=== PATIENT | female | born 1960 | race Caucasian/White ===

== ENCOUNTER 2017-12-10 17:32 | Emergency (ER) | payer OTHER ==
[~2017-12-10] VITALS: Ht 165.1 cm; Wt 70.3 kg
[~2017-12-10 17:32] MED LIST: ACETAMINOPHEN-1 EAC1 PO; AMITRIPTYLINE H10 M1 PO; ASPIRIN325 PO; CLEOCIN HCL150 MG PO; DUONEB 2.5-0.5 M3 ML INH; E.E.S. 400400 MG PO; FLEXERIL PO; HYDROCODON-ACE1 EAC4 PO; HYDROCODONE-AP1 EAC6 PO; IBUPROFEN 400400 M2 PO; KEFLEX500 MG PO; LEVAQUIN 500 M500 M2 PO; LIDOCAINE VISC100 M1 SWISH&SPIT; MEDROLDOSEPACK PO; MELOXICAM7.5 MG PO; MOBIC7.5 MG PO; NAPROSYN500 MG PO; NEBULIZER MISCELL; NEURONTIN 300300 M1 PO; NICOTINE TRANSD21 M1 TRANSDERM; NOHOMEMEDICATIONS; NORCO 10-325 T1 EACH PO; NORCO 5-325 TA1 EACH PO; OXYCONTIN10 M1 PO; OXYCONTIN20 M1 PO; PERCOCET 5-3251 EACH PO; PREDNISONE 10 M10 MG PO; PREDNISONE 20 M20 M1 PO; PREDNISONE 20 M20 MG PO; PROAIR HFA8.5 GM INH; PROVENTIL HFA6.7 G1 INH; RITALIN LA10 MG; ROBAXIN 750 MG750 M1 PO; SIMVASTATIN80 MG PO; TESSALON PERLE100 MG PO; TRAMADOL 50 MG50 MG PO; VALIUM5 MG PO; VYTORIN; levofloxacin PO
[2017-12-10 18:00] LABS: URINE BILIRUBIN NEGATIVE (Negative); URINE BLOOD TRACE (Negative); URINE CLARITY CLEAR; URINE COLOR YELLOW; URINE GLUCOSE-RANDOM NEGATIVE (Negative); URINE KETONES NEGATIVE (Negative); URINE LEUKOCYTES-REFLEX NEGATIVE (Negative); URINE NITRITE-REFLEX NEGATIVE (Negative); URINE PROTEIN NEGATIVE (Negative); URINE SPECIFIC GRAVITY <= 1.005 (1.005-1.030); URINE UROBILINOGEN 0.2 E.U./dl (0.2-1.0)
[2017-12-10 18:10] LABS: AMP/METHAMP Negative (Negative); BARBITURATES Negative (Negative); BENZODIAZEPINES Negative (Negative); COCAINE Negative (Negative); METHADONE Negative (Negative); OPIATES Negative (Negative); PCP Negative (Negative); THC Negative (Negative)
[2017-12-10 18:14] LABS: ABSOLUTE BASOPHILS 0.1 thou/uL (0.0-0.2); ABSOLUTE EOSINOPHILS 0.1 thou/uL (0.0-0.7); ABSOLUTE LYMPHOCYTES 2.8 thou/uL (0.8-5.3); ABSOLUTE MONOCYTES 0.9 thou/uL (0.0-1.2); ABSOLUTE NEUTROPHILS 7.9 thou/uL (1.6-8.1); BASOPHILS 0.9 %; EOSINOPHILS 1.1 %; HEMATOCRIT 43.3 % (37.0-47.0); HEMOGLOBIN 14.5 gm/dL (12.0-15.0); LYMPHOCYTES 23.8 %; MCH 31.7 pg (26.0-34.0); MCHC 33.5 g/dL (28.0-37.0); MCV 94.5 fL (80.0-100.0); MONOCYTES 7.4 %; MPV 7.5 fl. (7.2-11.1); NUCLEATED RBCS 0 /100WBC; PLATELET COUNT* 410 thou/uL (150-400); POLYS 66.8 %; RBC 4.58 mil/uL (4.20-5.00); RDW-CV 13.9 % (10.5-14.5); WBC 11.9 thou/uL (4.0-11.0)
[2017-12-10 18:57] LABS: CALCIUM 9.4 mg/dL (8.5-10.1); CREATININE 0.7 mg/dL (0.6-1.3); POTASSIUM 3.5 mmol/L (3.5-5.1)
[2017-12-10 19:02] LABS: ALBUMIN 3.2 g/dL (3.4-5.0); TOTAL BILIRUBIN 0.4 mg/dL (<0.1-1.0); TOTAL PROTEIN 7.2 g/dL (6.4-8.2)
[2017-12-10] MEDS ORDERED: PREDNISONE 20 M20 MG PO (19:57)
[2017-12-10 20:34] VITALS: BP 128/66
--- NOTE | 2017-12-11 11:13 | EKG ---
[place] [address] ELECTROCARDIOGRAM REPORT Name: CAMMY CHURCH [id number] Admission: 12/10/17 Attend Phys: Discharge: 12/10/17 Date of : 58 Report #: [id number] THIS REPORT FOR: //name// [facility] ED Test Date: 2017-12-10 Test Time: 17:59:00 Pat Name: CAMMY CHURCH Department: Room: Gender: F Humane Agent: : 1960 Requested By: Ashley Chávez Order Number: [id number] : Shekhar La Measurements Intervals [place] Rate: 96 P: 70 [place]: 129 QRS: 39 QRSD: 102 T: 40 QT: 365 QTc: 462 Interpretive Statements Sinus rhythm Compared to ECG 12/12/2015 20:54:15 Sinus tachycardia no longer present Electronically Signed On 12-11-2017 11:13:12 CDT by Shekhar La [email or web address] <ELECTRONICALLY SIGNED> By: Shekhar La MD, [facility] 12/11/17 1113 1759 1759 Shekhar La MD, FACC /EPI
== END 2017-12-10 20:36 | disposition home or self-care (01) ==
LOC: M.ERS 17:32
PROVIDERS: Nurse Practitioner Family
DX: R19.7 Diarrhea, unspecified (principal); M53.3 Sacrococcygeal disorders, not elsewhere classified; G89.29 Other chronic pain; E78.00 Pure hypercholesterolemia, unspecified; F90.9 Attention-deficit hyperactivity disorder, unspecified type; M79.7 Fibromyalgia; F32.9 Major depressive disorder, single episode, unspecified; F41.9 Anxiety disorder, unspecified; Z88.0 Allergy status to penicillin; Z90.49 Acquired absence of other specified parts of digestive tract; Z88.8 Allergy status to other drugs, medicaments and biological substances; Z88.6 Allergy status to analgesic agent

== ENCOUNTER 2018-06-23 09:47 | Emergency (ER) | payer OTHER ==
[~2018-06-23] VITALS: Ht 165.1 cm; Wt 72.6 kg
[2018-06-23] MEDS ORDERED: NEURONTIN 300300 M1 PO (09:56)
[2018-06-23] MEDS ORDERED: BLOOD PRESSURE MED (09:56)
[2018-06-23 10:15] LABS: ABSOLUTE BASOPHILS 0.1 thou/uL (0.0-0.2); ABSOLUTE EOSINOPHILS 0.1 thou/uL (0.0-0.7); ABSOLUTE LYMPHOCYTES 1.5 thou/uL (0.8-5.3); ABSOLUTE MONOCYTES 0.8 thou/uL (0.0-1.2); ABSOLUTE NEUTROPHILS 8.8 thou/uL (1.6-8.1); BASOPHILS 0.9 %; EOSINOPHILS 0.9 %; HEMATOCRIT 42.5 % (37.0-47.0); HEMOGLOBIN 14.2 gm/dL (12.0-15.0); LYMPHOCYTES 12.9 %; MCH 30.5 pg (26.0-34.0); MCHC 33.5 g/dL (28.0-37.0); MCV 91.1 fL (80.0-100.0); MONOCYTES 7.4 %; MPV 7.3 fl. (7.2-11.1); NUCLEATED RBCS 0 /100WBC; PLATELET COUNT* 451 thou/uL (150-400); POLYS 77.9 %; RBC 4.67 mil/uL (4.20-5.00); RDW-CV 17.3 % (10.5-14.5); WBC 11.3 thou/uL (4.0-11.0)
[2018-06-23 10:24] LABS: ANION GAP 7 mmol/L (7-16); BUN 8 mg/dL (7-18); CALCIUM 9.4 mg/dL (8.5-10.1); CHLORIDE 104 mmol/L (98-107); CO2 27 mmol/L (21-32); CREATININE 0.6 mg/dL (0.6-1.3); GLUCOSE 134 mg/dL (70-99); POTASSIUM 4.3 mmol/L (3.5-5.1); SODIUM 138 mmol/L (136-145)
[2018-06-23 10:31] LABS: ALBUMIN 3.4 g/dL (3.4-5.0); ALKALINE PHOSPHATASE 167 U/L (46-116); SGOT 23 U/L (15-37); SGPT 21 U/L (30-65); TOTAL BILIRUBIN 0.6 mg/dL (<0.1-1.0); TROPONIN-I LEVEL <0.06 ng/mL (<0.06)
[2018-06-23 10:34] LABS: APTT 28.8 Seconds (25.0-31.3); INR 0.9; PROTIME 9.6 Seconds (9.20-11.50)
[2018-06-23 12:04] LABS: URINE BILIRUBIN NEGATIVE (Negative); URINE BLOOD TRACE (Negative); URINE CLARITY CLEAR; URINE COLOR YELLOW; URINE GLUCOSE-RANDOM NEGATIVE (Negative); URINE KETONES NEGATIVE (Negative); URINE LEUKOCYTES-REFLEX NEGATIVE (Negative); URINE NITRITE-REFLEX NEGATIVE (Negative); URINE PROTEIN NEGATIVE (Negative); URINE SPECIFIC GRAVITY <= 1.005 (1.005-1.030); URINE UROBILINOGEN 0.2 E.U./dl (0.2-1.0)
[2018-06-23] MEDS ORDERED: MEDROLDOSEPACK PO (12:48)
[2018-06-23] MEDS ORDERED: TORADOL 10 MG T10 MG PO (12:48)
[2018-06-23 13:24] VITALS: BP 149/80
--- NOTE | 2018-06-25 11:01 | EKG ---
[place] [address] ELECTROCARDIOGRAM REPORT Name: CAMMY CHURCH [id number] Admission: 06/23/18 Attend Phys: Discharge: 06/23/18 Date of : 58 Report #: [id number] THIS REPORT FOR: //name// [facility] ED Test Date: 2018-06-23 Test Time: 09:54:20 Pat Name: CAMMY CHURCH Department: Room: Gender: F Construction Director: [place] : 1960 Requested By: Roxanna Ruano Order Number: [id number] Kayla MD: Shekhar La Measurements Intervals [place] Rate: 107 P: 78 SD: 128 QRS: 28 QRSD: 94 T: 43 QT: 319 QTc: 426 Interpretive Statements Sinus tachycardia Borderline low voltage, extremity leads Abnormal R-wave progression, early transition Compared to ECG 12/10/2017 17:59:00 Sinus rate has increased Electronically Signed On 06-25-2018 11:01:39 MANAGER EXCHANGE by Shekhar La [email or web address] <ELECTRONICALLY SIGNED> By: Shekhar La MD, [facility] 06/25/18 1101 [id number] Shekhar La MD, FACC /EPI
== END 2018-06-23 13:26 | disposition home or self-care (01) ==
LOC: M.ERS 09:47
PROVIDERS: Personal Emergency Response Attendant
DX: M94.0 Chondrocostal junction syndrome [Tietze] (principal); E78.00 Pure hypercholesterolemia, unspecified; F90.9 Attention-deficit hyperactivity disorder, unspecified type; M79.7 Fibromyalgia; F32.9 Major depressive disorder, single episode, unspecified; F41.9 Anxiety disorder, unspecified; I25.2 Old myocardial infarction; F17.210 Nicotine dependence, cigarettes, uncomplicated; Z88.0 Allergy status to penicillin; Z88.8 Allergy status to other drugs, medicaments and biological substances

== ENCOUNTER 2018-06-29 17:23 | Emergency (ER) | payer OTHER ==
[~2018-06-29] VITALS: Ht 154.9 cm; Wt 73.0 kg
[~2018-06-29 17:23] MED LIST changes: +BLOOD PRESSURE MED; +TORADOL 10 MG T10 MG PO
[2018-06-29] MEDS ORDERED: FLEXERIL PO (17:40)
[2018-06-29] MEDS ORDERED: NORCO 5-325 TA1 EACH PO (17:40)
[2018-06-29 17:42] VITALS: BP 139/100
== END 2018-06-29 17:43 | disposition home or self-care (01) ==
LOC: M.ERS 17:23
DX: R07.81 Pleurodynia (principal); E78.00 Pure hypercholesterolemia, unspecified; F32.9 Major depressive disorder, single episode, unspecified; F41.9 Anxiety disorder, unspecified; I25.2 Old myocardial infarction; M79.7 Fibromyalgia; Z90.49 Acquired absence of other specified parts of digestive tract; Z98.890 Other specified postprocedural states; F17.210 Nicotine dependence, cigarettes, uncomplicated; Z88.0 Allergy status to penicillin; Z88.8 Allergy status to other drugs, medicaments and biological substances

== ENCOUNTER 2019-01-07 08:38 | Emergency (ER) | payer OTHER ==
[~2019-01-07] VITALS: Ht 154.9 cm; Wt 52.2 kg
[2019-01-07 09:16] LABS: ABSOLUTE BASOPHILS 0.1 thou/uL (0.0-0.2); ABSOLUTE EOSINOPHILS 0.2 thou/uL (0.0-0.7); ABSOLUTE LYMPHOCYTES 1.2 thou/uL (0.8-5.3); ABSOLUTE NEUTROPHILS 11.4 thou/uL (1.6-8.1); BASOPHILS 0.5 %; EOSINOPHILS 1.3 %; HEMATOCRIT 33.5 % (37.0-47.0); HEMOGLOBIN 11.2 gm/dL (12.0-15.0); LYMPHOCYTES 8.5 %; MCH 31.3 pg (26.0-34.0); MCHC 33.4 g/dL (28.0-37.0); MCV 93.8 fL (80.0-100.0); MONOCYTES 7.4 %; MPV 7.7 fl. (7.2-11.1); NUCLEATED RBCS 0 /100WBC; PLATELET COUNT* 393 thou/uL (150-400); POLYS 82.3 %; RBC 3.57 mil/uL (4.20-5.00); RDW-CV 14.5 % (10.5-14.5); WBC 13.9 thou/uL (4.0-11.0)
[2019-01-07 09:19] LABS: BE -0.5 mmol/L (-2 to +3); PCO2 41.9 mmHg (35.0-45.0); PO2 60.5 mmHg (75.0-100.0); pH 7.385 (7.340-7.450)
[2019-01-07 09:22] LABS: ANION GAP 7 mmol/L (7-16); BUN 6 mg/dL (7-18); CALCIUM 8.9 mg/dL (8.5-10.1); CHLORIDE 104 mmol/L (98-107); CO2 26 mmol/L (21-32); CREATININE 0.6 mg/dL (0.6-1.3); GLUCOSE 138 mg/dL (70-99); POTASSIUM 3.3 mmol/L (3.5-5.1); SODIUM 137 mmol/L (136-145)
[2019-01-07 09:27] LABS: APTT 31.2 Seconds (25.0-31.3); PROTIME 9.9 Seconds (9.20-11.50)
[2019-01-07 09:34] LABS: ALBUMIN 2.5 g/dL (3.4-5.0); ALKALINE PHOSPHATASE 130 U/L (46-116); CK-MB MASS 1.1 ng/mL (<0.5-3.6); LIPASE 32 U/L (73-393); MAGNESIUM 1.6 mg/dL (1.8-2.4); NT-PRO BRAIN NAT PEPTIDE 319 pg/mL (<300); SGOT 16 U/L (15-37); SGPT 17 U/L (30-65); TOTAL BILIRUBIN 0.4 mg/dL (<0.1-1.0); TOTAL PROTEIN 6.8 g/dL (6.4-8.2); TROPONIN-I LEVEL <0.06 ng/mL (<0.06)
[2019-01-07] MEDS ORDERED: VENTOLIN HFA 1818 GM INH (09:48)
[2019-01-07] MEDS ORDERED: LEVAQUIN 500 M500 MG PO (09:48)
[2019-01-07] MEDS ORDERED: PREDNISONE 20 M20 M1 PO (09:48)
[2019-01-07 10:30] VITALS: BP 126/68
--- NOTE | 2019-01-08 16:10 | EKG ---
[place] [address] ELECTROCARDIOGRAM REPORT Name: CAMMY CHURCH [facility] [id number] Admission: 01/07/19 Attend Phys: Discharge: 01/07/19 Date of : 58 Report #: [id number] THIS REPORT FOR: //name// [facility] ED Test Date: 2019-01-07 Test Time: 08:42:31 Pat Name: CAMMY CHURCH Department: Room: Gender: F Echocardiograph Technician: : 1960 Requested By: Branden Aguilar Order Number: [id number] MD: Shekhar La Measurements Intervals [place] Rate: 91 P: 71 CT: 122 QRS: 28 QRSD: 100 T: 60 QT: 357 QTc: 440 Interpretive Statements Sinus rhythm Compared to ECG 06/23/2018 09:54:20 Sinus tachycardia no longer present Electronically Signed On 01-08-2019 16:09:56 CDT by Shekhar La [email or web address] <ELECTRONICALLY SIGNED> By: Shekhar La MD, [facility] 01/08/19 1609 0842 0842 Shekhar La MD, FACC /EPI
== END 2019-01-07 10:30 | disposition home or self-care (01) ==
LOC: M.ERS 08:38
PROVIDERS: Family Medicine
DX: J44.1 Chronic obstructive pulmonary disease with (acute) exacerbation (principal); J18.9 Pneumonia, unspecified organism; F32.9 Major depressive disorder, single episode, unspecified; F41.9 Anxiety disorder, unspecified; M79.7 Fibromyalgia; E78.00 Pure hypercholesterolemia, unspecified; F90.9 Attention-deficit hyperactivity disorder, unspecified type; F17.210 Nicotine dependence, cigarettes, uncomplicated; Z88.0 Allergy status to penicillin; Z88.6 Allergy status to analgesic agent; Z88.8 Allergy status to other drugs, medicaments and biological substances; Z98.51 Tubal ligation status

== ENCOUNTER 2019-02-28 16:09 | Inpatient (IN) | payer OTHER ==
[~2019-02-28] VITALS: Ht 154.9 cm; Wt 72.1 kg
[~2019-02-28 16:09] MED LIST changes: +BISOPROLOL-HCT1 EAC2 PO; -BLOOD PRESSURE MED; +LEVAQUIN 500 M500 MG PO; +VENTOLIN HFA 1818 GM INH
[2019-02-28 16:11] VITALS: BP 163/83
[2019-02-28 17:06] LABS: INFLUENZA A ANTIGEN Negative (Negative); INFLUENZA B ANTIGEN Negative (Negative)
[2019-02-28 17:37] LABS: ABSOLUTE BASOPHILS 0.1 thou/uL (0.0-0.2); ABSOLUTE EOSINOPHILS 0.2 thou/uL (0.0-0.7); ABSOLUTE LYMPHOCYTES 1.9 thou/uL (0.8-5.3); ABSOLUTE MONOCYTES 0.9 thou/uL (0.0-1.2); ABSOLUTE NEUTROPHILS 6.6 thou/uL (1.6-8.1); BASOPHILS 1.3 %; EOSINOPHILS 2.5 %; HEMATOCRIT 36.1 % (37.0-47.0); HEMOGLOBIN 12.2 gm/dL (12.0-15.0); LYMPHOCYTES 19.4 %; MCH 31.4 pg (26.0-34.0); MCHC 33.8 g/dL (28.0-37.0); MCV 93.1 fL (80.0-100.0); MONOCYTES 8.8 %; MPV 7.1 fl. (7.2-11.1); NUCLEATED RBCS 0 /100WBC; PLATELET COUNT* 439 thou/uL (150-400); RBC 3.88 mil/uL (4.20-5.00); RDW-CV 13.7 % (10.5-14.5); WBC 9.7 thou/uL (4.0-11.0)
[2019-02-28 17:48] LABS: CALCIUM 9.4 mg/dL (8.5-10.1); CREATININE 0.5 mg/dL (0.6-1.3); POTASSIUM 3.9 mmol/L (3.5-5.1)
[2019-02-28 18:02] LABS: APTT 28.2 Seconds (25.0-31.3); PROTIME 9.9 Seconds (9.20-11.50)
[2019-02-28 18:03] LABS: CK-MB MASS 1.8 ng/mL (<0.5-3.6); MAGNESIUM 1.8 mg/dL (1.8-2.4); TOTAL BILIRUBIN 0.2 mg/dL (<0.1-1.0); TOTAL PROTEIN 6.8 g/dL (6.4-8.2)
--- NOTE | 2019-02-28 18:08 | NUR ---
PT PLACED ON 2 LITERS NC AFTER PAIN ADMINISTRATION DUE TO O2 SAT DROPPING TO 92%
--- NOTE | 2019-02-28 18:58 | NUR ---
REPORT GIVEN TO DARIUS NAZARIO WHO IS TO ASSUME PT CARE AT THIS TIME.
[2019-02-28 21:40] VITALS: BP 164/89
[2019-02-28 21:45] VITALS: BP 167/98
--- NOTE | 2019-02-28 22:17 | NUR ---
PT ADMITTED TO ROOM 232 AT 2145 FOR EXACERBATION COPD, PNEUMONIA. PT REPORTED SHARP CHEST PAIN RATED AT 10. PAIN IS SEVERE WHEN COUGHING. PT GIVEN ONE TIME DOSE OF MORPHINE PER ED PHYSICAN. DR OCAMPO PAGED FOR ADDITIONAL PRDERS.
--- NOTE | 2019-02-28 22:46 | NUR ---
RECIEVED CALL BACK FROM DR SPENCER. REPORTED PT'S CHEST PAIN ASSOCIATED WITH PNEUMONIA AND COUGHING. RECIEVED ORDER FOR PRN HYDROCODONE.
[2019-03-01] VITALS: BP 99/69
--- NOTE | 2019-03-01 06:54 | NUR ---
PT REFUSED BLOOD DRAW THIS MORNING. PT FREQUENTLY REQUESTING PAIN MEDS THEN FALLS TO SLEEP. PT GIVEN PRN VICODIN PER ORDERS.
[2019-03-01 08:00] VITALS: BP 121/82
[2019-03-01 12:00] VITALS: BP 123/65
--- NOTE | 2019-03-01 14:21 | NUR ---
MET WITH PT TO DISCUSS HOME SITUATION/DC PLANNING. PT LIVES WITH SON, IS NORMALLY INDEPENDENT AND ACTIVE. USES NEBULIZER BUT IS OUT ANY MEDS. PT HASN'T HAD HH OR BEEN TO SNF IN PAST. NO NEEDS ID'D
[2019-03-01 16:28] VITALS: BP 128/62
--- NOTE | 2019-03-01 18:24 | EKG ---
[place] [address] ELECTROCARDIOGRAM REPORT Name: LYNNETTECAMMY JAIME Room: [address] ADM IN M.R.#: [id number] Admission: 02/28/19 Attend Phys: Luis Niño Discharge: Date of : 58 Report #: [id number] THIS REPORT FOR: //name// [facility] ED Test Date: 2019-02-28 Test Time: 17:22:54 Pat Name: CAMMY CHURCH Department: Room: [address] Gender: F Advice Nurse: EV : 1960 Requested By: Aki Yin Order Number: [id number] Kayla MD: Arnulfo Montemayor Measurements Intervals [place] Rate: 67 P: 68 [place]: 124 QRS: 51 QRSD: 101 T: 31 QT: 412 QTc: 435 Interpretive Statements Sinus rhythm Borderline low voltage, extremity leads Compared to ECG 01/07/2019 08:42:31 No significant changes Electronically Signed On 03-01-2019 18:23:52 CDT by Arnulfo Montemayor [email or web address] <ELECTRONICALLY SIGNED> By: Arnulfo Montemayor MD, [facility] 03/01/19 1823 21 21 Arnulfo Montemayor MD, FACC /EPI
--- NOTE | 2019-03-01 18:25 | EKG ---
[place] [address] ELECTROCARDIOGRAM REPORT Name: LYNNETTECAMMY JAIME Room: [address] ADM IN M.R.#: [id number] Admission: 02/28/19 Attend Phys: Luis Niño Discharge: Date of : 58 Report #: [id number] THIS REPORT FOR: //name// [facility] ED Test Date: 2019-02-28 Test Time: 16:18:26 Pat Name: CAMMY CHURCH Department: Room: [facility] Gender: F Business Analysis Specialist: [facility] : 1960 Requested By: Aki Yin Order Number: [id number] MD: Arnulfo Montemayor Measurements Intervals [place] Rate: 76 P: 80 [place]: 126 QRS: 57 QRSD: 97 T: 58 QT: 381 QTc: 429 Interpretive Statements Sinus rhythm Compared to ECG 01/07/2019 08:42:31 No significant changes Electronically Signed On 03-01-2019 18:25:33 CDT by Arnulfo Montemayor [email or web address] <ELECTRONICALLY SIGNED> By: Arnulfo Montemayor MD, [facility] 03/01/19 1825 D: 10/1617 17 Arnulfo Montemayor MD, FACC /EPI
[2019-03-01 20:00] VITALS: BP 162/85
[2019-03-02 04:00] VITALS: BP 167/71
--- NOTE | 2019-03-02 07:02 | CON ---
[address] [address] CONSULTATION Name: LYNNETTECAMMY JAIME Room: [address] IN M.R.#: [id number] Admission: 02/28/19 Attend Phys: Luis Niño Discharge: Date of : 58 Report #: [id number] THIS REPORT FOR: //name// CC: Aure Draper DATE OF SERVICE: 03/01/2019 PULMONARY CONSULTATION REQUESTING PHYSICIAN: Kiko Draper DO REASON FOR CONSULTATION: 1. Acute exacerbation of COPD. 2. Mass-like density in the right upper lobe. HISTORY OF PRESENT ILLNESS: The patient is a 58-year-old female with past medical history that is significant for COPD, continuous tobacco dependence, fibromyalgia, anxiety, and history of DVTs. The patient presented to the Emergency Department with a history of shortness of breath that has been going on for the last 10 days. Of note, the patient was treated for pneumonia 3 weeks ago as an outpatient, which was left-sided. The patient was offered admission at that time, but she declined. She was given a steroid taper along with an antibiotic that she is not sure of, but she thinks it could be Levaquin. The patient initially felt well; however, approximately 10 days ago, the patient started to have progressively weak and dyspneic. She reported history of cough that is productive of yellowish sputum. This was associated with wheezing and chest tightness as well. The patient denies any fevers or chills and denies any sick contacts. She used her bronchodilator at home, which is albuterol without significant improvement in her symptoms. She is not taking any maintenance breathing treatments. The patient was admitted and was started on a treatment for pneumonia. Of note, the patient had a blunt chest trauma approximately 1 week ago prior to admission as well. REVIEW OF SYSTEMS: Positive for cough, dyspnea, chest tightness, [place] [address] CONSULTATION Name: CAMMY CHURCH Room: [address] IN [facility].#: [id number] Admission: 02/28/19 Attend Phys: Luis Niño Discharge: Date of : 58 Report #: [id number] Remaining 10-point review of system was otherwise unremarkable. PAST MEDICAL HISTORY: Positive for hypoxemia, COPD, coronary artery disease, hypertension, bulging disk, and history of anxiety and ADHD. PAST SURGICAL HISTORY: Positive for cholecystectomy, carpal tunnel release, section, and tubal ligation. FAMILY HISTORY: Positive for lung and skin cancer in her mother. SOCIAL HISTORY: The patient has a history of smoking approximately 1 pack per day for the last 40 years. She continues to smoke unfortunately that same amount. She denies alcohol or illicit drug use. PHYSICAL EXAMINATION: VITAL SIGNS: The patient had the following vital signs: Temperature of 36.9, heart rate of 76, respiratory rate of 19, blood pressure of 123/65, saturations 96% on room air. GENERAL: Showed a middle-aged female who is mildly tachypneic, but otherwise is conscious, oriented x 3. HEENT: Showed atraumatic head. NECK: Supple. Pupils are round, reactive to light and accommodation. No JVD, thyromegaly, or cervical lymphadenopathy. No carotid bruit. CARDIOVASCULAR: Regular rate and rhythm. Normal S1, S2. No murmur. CHEST: Showed decreased air entry bilaterally with prolonged expiratory phase. No crackles. ABDOMEN: Soft, lax, nontender. Normal bowel sounds. EXTREMITIES: Lower limb examination showed no clubbing, cyanosis, or edema. CENTRAL NERVOUS SYSTEM: The patient is conscious, oriented x 3 with no focal neurological deficit. LABORATORY DATA: Her labs and investigations were as follows: CBC showed WBC count of 9.7, hemoglobin of 12.2, and platelets of 439. Her creatinine was within normal limits and BNP was 215. Sodium 142, potassium 3.9, chloride 107, bicarbonate 27. Her chest x-ray that was done on 02/28/2019 showed interval resolution of the previously demonstrated left lower lobe pneumonia that is suggestive of some minimal new focal infiltrate in the right mid lung. She underwent CT angio of the chest that was done during this admission and showed no evidence of pulmonary embolism or dissection, but there is a new 1.3 x 3.3 cm mass-like density within the inferior lateral corner of the right upper lobe. The predominant consideration is with her recent new pulmonary malignancy or focal early lobar pneumonitis. This region was unremarkable on the prior CT scan that was performed in June 2018. ASSESSMENT: 1. Acute exacerbation of chronic [place] [address] CONSULTATION Name: CAMMY CHURCH Room: [address] IN [facility]#: [id number] Admission: 02/28/19 Attend Phys: Luis Niño Discharge: Date of : 58 Report #: [id number] 2. Acute bronchitis. 3. Right upper lobe mass-like density. 4. Probable early pneumonia. 5. Recent treatment for pneumonia 3 weeks ago. 6. Continuous tobacco dependence. 7. History of coronary artery disease. 8. Hypertension. PLAN: I reviewed the CT scan finding with the patient and I expressed concern that this is a new finding that might suggest either malignancy or changes of early pneumonia. In view of the recent pneumonia and history of blunt chest trauma, this is also a possibility. She has an acute exacerbation of COPD. I would prefer to repeat the CT scan of the chest after 6 weeks to assess for resolution or progress and if it persists, tissue diagnosis or PET/CT should be considered. I will continue bronchodilators at this time and empiric antibiotic coverage with vancomycin and Levaquin and titrate oxygen as needed to keep saturation above 92%. She is on IV steroids. I will send for sputum culture and influenza A and B screening. I counseled the patient on smoking cessation. Thank you for giving us the opportunity to participate in the management of this patient. <ELECTRONICALLY SIGNED> By: Hi Cates MD 03/02/19 0702 1602 1641Aivan Babin MD /nt
--- NOTE | 2019-03-02 07:17 | NUR ---
ASSUMED CARE OF PT AFTER REPORT AT 1930. PT A&OX4. VSS. PHYSICAL ASSESSMENT COMPLETED AND CHARTED. PT ON RA. PT TRACING SR ON TELE. PT UPADLIB TO RESTROOM. PT COMPLAINED OF CHEST PAIN-MEDS GIVEN EPR JUL. PT ABLE TO SLEEP WELL ON BED. MRSA SWAB SENT TO LAB. CALL LIGHT WITHIN REACH.
[2019-03-02 08:00] VITALS: BP 156/77
[2019-03-02] MEDS ORDERED: NICOTINE TRANSD14 M1 TRANSDERM (10:52)
[2019-03-02] MEDS ORDERED: LEVAQUIN 750 M750 MG PO (10:52)
[2019-03-02] MEDS ORDERED: PREDNISONE 10 M10 MG PO (10:52)
[2019-03-02] MEDS ORDERED: ROBITUSSIN AC Liquid PO (10:52)
[2019-03-02 12:00] VITALS: BP 171/77
[2019-03-02] MEDS ORDERED: IBU800 MG PO (12:13)
[2019-03-02 12:52] VITALS: BP 171/77
--- NOTE | 2019-03-02 18:26 | NUR ---
ORDER RECEIVED TO DISCHARGE PATIENT HOME TO SELF CARE. FOLLOW UP WITH PRIMARY WITHIN 1 WEEK AND WITH PULMONARY IN 4-6 WEEKS FOR FURTHER IMAGING STUDIES.. MED REC, MEDICATION RECONCILIATION, STROKE EDUCATION, AND EXTENSIVE EDUCATION REGARDING THE NEED FOR TOTAL SMOKING CESSATION.. DC TIME OF 13:39. MELCHOR TAKEN VIA WHEELCHAIR TO HER OWN CAR BY NURSING STAFF. HOURLY ROUNDING COMPLETED FOR PATIENT SAFETY.
== END 2019-03-02 13:36 | disposition home or self-care (01) | DRG 193 ==
LOC: M.ERS 16:09 → M.2W 18:50 → M.TBA-ER 18:50 → M.2W 21:39
PROVIDERS: Emergency Medicine; ADMIT Internal Medicine
DX: J18.1 Lobar pneumonia, unspecified organism (principal); I21.9 Acute myocardial infarction, unspecified; J44.0 Chronic obstructive pulmonary disease with (acute) lower respiratory infection; C34.12 Malignant neoplasm of upper lobe, left bronchus or lung; J44.1 Chronic obstructive pulmonary disease with (acute) exacerbation; J20.9 Acute bronchitis, unspecified; E78.00 Pure hypercholesterolemia, unspecified; M79.7 Fibromyalgia; F90.9 Attention-deficit hyperactivity disorder, unspecified type; F41.9 Anxiety disorder, unspecified; F32.9 Major depressive disorder, single episode, unspecified; F17.200 Nicotine dependence, unspecified, uncomplicated; I25.10 Atherosclerotic heart disease of native coronary artery without angina pectoris; I10 Essential (primary) hypertension; Z80.1 Family history of malignant neoplasm of trachea, bronchus and lung; Z80.8 Family history of malignant neoplasm of other organs or systems; Z81.8 Family history of other mental and behavioral disorders; Z83.3 Family history of diabetes mellitus; Z82.3 Family history of stroke; Z88.0 Allergy status to penicillin; I25.2 Old myocardial infarction; Z88.8 Allergy status to other drugs, medicaments and biological substances; Z90.49 Acquired absence of other specified parts of digestive tract; Z98.891 History of uterine scar from previous surgery; Z79.899 Other long term (current) drug therapy; Z86.718 Personal history of other venous thrombosis and embolism

== ENCOUNTER 2019-08-08 22:31 | Emergency (ER) | payer OTHER ==
[~2019-08-08] VITALS: Ht 154.9 cm; Wt 68.0 kg
[~2019-08-08 22:31] MED LIST changes: +IBU800 MG PO; +LEVAQUIN 750 M750 MG PO; +NICOTINE TRANSD14 M1 TRANSDERM; +ROBITUSSIN AC Liquid PO
[2019-08-08] MEDS ORDERED: MEDROLDOSEPACK PO (23:36)
[2019-08-08] MEDS ORDERED: HYDROCODONE-AP1 EA11 PO (23:44)
[2019-08-08 23:57] VITALS: BP 188/99
== END 2019-08-08 23:58 | disposition home or self-care (01) ==
LOC: M.ERS 22:31
DX: S62.607A Fracture of unspecified phalanx of left little finger, initial encounter for closed fracture (principal); S80.01XA Contusion of right knee, initial encounter; M79.674 Pain in right toe(s); E78.00 Pure hypercholesterolemia, unspecified; M79.7 Fibromyalgia; F17.210 Nicotine dependence, cigarettes, uncomplicated; Z88.0 Allergy status to penicillin; Z88.6 Allergy status to analgesic agent; Z88.8 Allergy status to other drugs, medicaments and biological substances; Z90.49 Acquired absence of other specified parts of digestive tract; Z98.51 Tubal ligation status; Y08.89XA Assault by other specified means, initial encounter; Y93.89 Activity, other specified; Y92.89 Other specified places as the place of occurrence of the external cause; Y99.8 Other external cause status

== ENCOUNTER 2019-11-25 21:26 | Emergency (ER) | payer OTHER ==
[~2019-11-25] VITALS: Ht 154.9 cm; Wt 68.0 kg
[~2019-11-25 21:26] MED LIST changes: +HYDROCODONE-AP1 EA11 PO
[2019-11-25] MEDS ORDERED: HYDROCODON-ACE1 EAC5 PO (23:31)
[2019-11-25 23:47] VITALS: BP 156/90
== END 2019-11-25 23:48 | disposition home or self-care (01) ==
LOC: M.ERS 21:26
DX: S22.32XA Fracture of one rib, left side, initial encounter for closed fracture (principal); J44.1 Chronic obstructive pulmonary disease with (acute) exacerbation; E78.00 Pure hypercholesterolemia, unspecified; M79.7 Fibromyalgia; F32.9 Major depressive disorder, single episode, unspecified; F41.9 Anxiety disorder, unspecified; F17.210 Nicotine dependence, cigarettes, uncomplicated; Z90.49 Acquired absence of other specified parts of digestive tract; Z98.890 Other specified postprocedural states; Z98.51 Tubal ligation status; Z88.0 Allergy status to penicillin; Z88.8 Allergy status to other drugs, medicaments and biological substances; W22.8XXA Striking against or struck by other objects, initial encounter; Y93.89 Activity, other specified; Y92.89 Other specified places as the place of occurrence of the external cause; Y99.8 Other external cause status

== ENCOUNTER 2019-12-02 10:48 | Emergency (ER) | payer OTHER ==
[~2019-12-02] VITALS: Ht 152.4 cm; Wt 68.0 kg
[~2019-12-02 10:48] MED LIST changes: +HYDROCODON-ACE1 EAC5 PO
[2019-12-02 13:24] VITALS: BP 171/88
== END 2019-12-02 13:25 | disposition home or self-care (01) ==
LOC: M.ERS 10:48
DX: S22.32XA Fracture of one rib, left side, initial encounter for closed fracture (principal); E78.00 Pure hypercholesterolemia, unspecified; M79.7 Fibromyalgia; Z98.51 Tubal ligation status; Z90.49 Acquired absence of other specified parts of digestive tract; W22.8XXA Striking against or struck by other objects, initial encounter; Y93.89 Activity, other specified; Y92.89 Other specified places as the place of occurrence of the external cause; Y99.8 Other external cause status

== ENCOUNTER → 2020-01-03 | Outpatient (CLI) | payer OTHER | LOC: M.RAD 15:30 | PROVIDERS: ATTEND Internal Medicine | DX: S22.31XA Fracture of one rib, right side, initial encounter for closed fracture (principal); M81.0 Age-related osteoporosis without current pathological fracture; X58.XXXA Exposure to other specified factors, initial encounter; Y93.89 Activity, other specified; Y92.89 Other specified places as the place of occurrence of the external cause; Y99.8 Other external cause status ==

== ENCOUNTER 2020-04-22 17:37 | Emergency (ER) | payer OTHER ==
[~2020-04-22] VITALS: Ht 152.4 cm; Wt 70.3 kg
[2020-04-22 18:30] LABS: INFLUENZA A ANTIGEN Negative (Negative); INFLUENZA B ANTIGEN Negative (Negative)
[2020-04-22] MEDS ORDERED: DOXYCYCLINE 10100 MG PO (19:01)
[2020-04-22 19:30] VITALS: BP 163/79
== END 2020-04-22 19:31 | disposition home or self-care (01) ==
LOC: M.ERS 17:37
PROVIDERS: Nurse Practitioner Family
DX: S70.261A Insect bite (nonvenomous), right hip, initial encounter (principal); J98.8 Other specified respiratory disorders; Z20.828 Contact with and (suspected) exposure to other viral communicable diseases; E78.00 Pure hypercholesterolemia, unspecified; M79.7 Fibromyalgia; F17.210 Nicotine dependence, cigarettes, uncomplicated; Z88.0 Allergy status to penicillin; Z88.6 Allergy status to analgesic agent; Z88.8 Allergy status to other drugs, medicaments and biological substances; Z90.49 Acquired absence of other specified parts of digestive tract; Z98.51 Tubal ligation status; W57.XXXA Bitten or stung by nonvenomous insect and other nonvenomous arthropods, initial encounter; Y93.89 Activity, other specified; Y92.89 Other specified places as the place of occurrence of the external cause; Y99.8 Other external cause status

== ENCOUNTER 2020-05-13 20:00 | Emergency (ER) | payer OTHER ==
[~2020-05-13] VITALS: Ht 152.4 cm; Wt 72.6 kg
[~2020-05-13 20:00] MED LIST changes: +DOXYCYCLINE 10100 MG PO
[2020-05-13] MEDS ORDERED: IBUPROFEN 800800 M1 PO (21:11)
[2020-05-13] MEDS ORDERED: ZANAFLEX4 MG PO (21:11)
[2020-05-13 21:19] VITALS: BP 188/100
== END 2020-05-13 21:19 | disposition home or self-care (01) ==
LOC: M.ERS 20:00
DX: S80.12XA Contusion of left lower leg, initial encounter (principal); E78.00 Pure hypercholesterolemia, unspecified; J44.9 Chronic obstructive pulmonary disease, unspecified; M79.7 Fibromyalgia; F17.210 Nicotine dependence, cigarettes, uncomplicated; Z88.0 Allergy status to penicillin; Z88.6 Allergy status to analgesic agent; Z88.8 Allergy status to other drugs, medicaments and biological substances; Z98.51 Tubal ligation status; Z90.49 Acquired absence of other specified parts of digestive tract; Y08.89XA Assault by other specified means, initial encounter; Y93.89 Activity, other specified; Y92.89 Other specified places as the place of occurrence of the external cause; Y99.8 Other external cause status

== ENCOUNTER 2020-09-27 12:44 | Emergency (ER) | payer OTHER ==
[~2020-09-27] VITALS: Ht 152.4 cm; Wt 68.0 kg
[~2020-09-27 12:44] MED LIST changes: +IBUPROFEN 800800 M1 PO; +ZANAFLEX4 MG PO
[2020-09-27] MEDS ORDERED: PERCOCET 5-3251 EACH PO (14:15)
[2020-09-27 14:21] VITALS: BP 141/54
--- NOTE | 2020-09-28 13:55 | EKG ---
[place] [address] ELECTROCARDIOGRAM REPORT Name: CAMMY CHURCH Room: [facility]#: [id number] Admission: 09/27/20 Attend Phys: Discharge: 09/27/20 Date of : 58 Date of Service: 09/27/20 1333 Report #: [id number] THIS REPORT FOR: //name// [facility] ED Test Date: 2020-09-27 Test Time: 13:33:40 Pat Name: CAMMY CHURCH Department: Room: Gender: F Director Of Billing: : 1960 Requested By: Hermes Jeter Order Number: [id number] MD: Shekhar La Measurements Intervals [place] Rate: 75 P: 68 [place]: 131 QRS: 41 QRSD: 99 T: 51 QT: 396 QTc: 443 Interpretive Statements Sinus rhythm Compared to ECG 02/28/2019 17:22:54 No significant changes Electronically Signed On 09-28-2020 13:55:21 CDT by Shekhar La [email or web address] <ELECTRONICALLY SIGNED> By: Shekhar La MD, [facility] 09/28/20 1355 1333 1333 Shekhar La MD, FAC /EPI
== END 2020-09-27 14:22 | disposition home or self-care (01) ==
LOC: M.ERS 12:44
DX: M25.511 Pain in right shoulder (principal); M79.7 Fibromyalgia; J44.9 Chronic obstructive pulmonary disease, unspecified; I10 Essential (primary) hypertension; M19.90 Unspecified osteoarthritis, unspecified site; E78.00 Pure hypercholesterolemia, unspecified; Z88.0 Allergy status to penicillin; Z88.6 Allergy status to analgesic agent; Z88.8 Allergy status to other drugs, medicaments and biological substances; Z90.49 Acquired absence of other specified parts of digestive tract; Z98.890 Other specified postprocedural states; Z98.51 Tubal ligation status

== ENCOUNTER 2020-11-07 14:43 | Emergency (ER) | payer OTHER ==
[~2020-11-07] VITALS: Ht 152.4 cm; Wt 65.8 kg
[2020-11-07 16:19] VITALS: BP 170/89
== END 2020-11-07 16:19 | disposition home or self-care (01) ==
LOC: M.ERS 14:43
DX: S46.811A Strain of other muscles, fascia and tendons at shoulder and upper arm level, right arm, initial encounter (principal); M54.32 Sciatica, left side; M79.7 Fibromyalgia; M19.90 Unspecified osteoarthritis, unspecified site; J44.9 Chronic obstructive pulmonary disease, unspecified; E78.00 Pure hypercholesterolemia, unspecified; F17.210 Nicotine dependence, cigarettes, uncomplicated; Z90.49 Acquired absence of other specified parts of digestive tract; Z98.51 Tubal ligation status; Z98.890 Other specified postprocedural states; Z88.0 Allergy status to penicillin; Z88.6 Allergy status to analgesic agent; Z88.8 Allergy status to other drugs, medicaments and biological substances; V89.2XXA Person injured in unspecified motor-vehicle accident, traffic, initial encounter; Y93.89 Activity, other specified; Y92.89 Other specified places as the place of occurrence of the external cause; Y99.8 Other external cause status

== ENCOUNTER → 2020-11-27 | Outpatient (CLI) | payer OTHER | LOC: M.MRI 07:04 | PROVIDERS: ATTEND Orthopaedic Surgery | DX: S46.811A Strain of other muscles, fascia and tendons at shoulder and upper arm level, right arm, initial encounter (principal); M75.101 Unspecified rotator cuff tear or rupture of right shoulder, not specified as traumatic; M19.011 Primary osteoarthritis, right shoulder; M25.411 Effusion, right shoulder; X58.XXXA Exposure to other specified factors, initial encounter; Y92.89 Other specified places as the place of occurrence of the external cause; Y93.89 Activity, other specified; Y99.8 Other external cause status ==

== ENCOUNTER → 2020-12-15 | Outpatient (CLI) | payer OTHER | LOC: M.LAB 09:52 | PROVIDERS: ATTEND Orthopaedic Surgery | DX: Z01.812 Encounter for preprocedural laboratory examination (principal); Z20.822 Contact with and (suspected) exposure to COVID-19 ==